=== PATIENT | female | born 1955 | race Caucasian/White ===

== ENCOUNTER → 2022-12-17 | Outpatient (CLI) | payer MEDICARE, OTHER ==
[~2022-12-17] MED LIST: BREO ELLIPTA1 POW IH; FLUTICASONE-VI1 EACH IH; HALCION0.25 MG PO; HYDROCHLOROTH12.5 M1 PO; LOVASTATIN20 M1 PO; METOPROLOL SUCC50 M1 PO; SINGULAIR 110 MG/TAB PO; VALIUM 2MG T2 MG/TAB PO; ZOFRAN ODT4 MG PO
[2022-12-17 10:45] LABS: BASO # 0.01 K/mm3 (0.02-0.10); EOS # 0.05 K/mm3 (0.04-0.40); EOS % 0.4 % (1.0-5.0); HEMATOCRIT 42.5 % (37.0-47.0); HEMOGLOBIN 14.2 g/dL (12.5-16.0); LYMPH# 0.72 K/mm3 (1.50-4.00); MEAN CELL VOLUME 91 fl (78-100); MEAN CORPUSCULAR HEMOGLOBIN 30 pg (27-31); MEAN CORPUSCULAR HGB CONC 33 g/dL (33-37); MEAN PLATELET VOLUME 8.5 fl (7.4-10.4); MONO # 0.55 K/mm3 (0.20-0.80); NEU # 11.13 K/mm3 (1.40-6.50); PLATELET COUNT 247 K/mm3 (130-400); RED BLOOD COUNT 4.69 M/mm3 (4.10-5.30); WHITE BLOOD COUNT 12.5 K/mm3 (4.8-10.8)
[2022-12-17 10:50] LABS: ALBUMIN 4.5 g/dL (3.4-4.8); POTASSIUM 3.7 mmol/L (3.5-5.1)
[2022-12-17 10:51] LABS: CALCIUM 10.6 mg/dL (8.3-10.5)
[2022-12-17 10:53] LABS: TOTAL PROTEIN 7.6 g/dL (6.2-8.1)
[2022-12-17 10:55] LABS: TOTAL BILIRUBIN 0.7 mg/dL (0.2-1.2)
[2022-12-17 11:00] LABS: MAGNESIUM 2.1 mg/dL (1.60-2.60)
[2022-12-17 11:36] LABS: URINE APPEARANCE HAZY; URINE BILIRUBIN NEGATIVE (NEGATIVE); URINE BLOOD 50 ery/uL (NEGATIVE); URINE COLOR YELLOW; URINE GLUCOSE NEGATIVE (NEGATIVE); URINE KETONE 1+ (NEGATIVE); URINE LEUKOCYTE ESTERASE TRACE (NEGATIVE); URINE NITRATE NEGATIVE (NEGATIVE); URINE PROTEIN(semi-quant) TRACE (NEGATIVE); URINE UROBILINOGEN NORMAL (NORMAL)
[2022-12-17 11:37] LABS: URINE MUCUS PRESENT (NOT PRESENT)
[2022-12-17 11:48] LABS: ERYTHROCYTE SEDIMENTATION RATE 29 mm/hr (0-30)
== END ==
LOC: LAB 10:20
PROVIDERS: Internal Medicine
DX: K90.9 Intestinal malabsorption, unspecified (principal); I10 Essential (primary) hypertension; E78.2 Mixed hyperlipidemia; Z12.39 Encounter for other screening for malignant neoplasm of breast; Z12.11 Encounter for screening for malignant neoplasm of colon; J43.9 Emphysema, unspecified; N20.0 Calculus of kidney; M85.80 Other specified disorders of bone density and structure, unspecified site

== ENCOUNTER 2022-12-25 08:38 | Emergency (ER) | payer MEDICARE, OTHER ==
[2022-12-25 08:47] VITALS: BP 107/85
[2022-12-25] MEDS ORDERED: POTASSIUM CHLO480 ML PO (08:49)
[2022-12-25] MEDS ORDERED: VANCOMYCIN HYD125 MG PO (08:49)
[2022-12-25 09:28] LABS: BASO # 0.02 K/mm3 (0.02-0.10); EOS % 1.1 % (1.0-5.0); HEMATOCRIT 38.5 % (37.0-47.0); HEMOGLOBIN 12.8 g/dL (12.5-16.0); LYMPH# 0.93 K/mm3 (1.50-4.00); MEAN CELL VOLUME 91 fl (78-100); MEAN CORPUSCULAR HEMOGLOBIN 30 pg (27-31); MEAN CORPUSCULAR HGB CONC 33 g/dL (33-37); MEAN PLATELET VOLUME 8.6 fl (7.4-10.4); MONO # 0.91 K/mm3 (0.20-0.80); PLATELET COUNT 317 K/mm3 (130-400); RED BLOOD COUNT 4.24 M/mm3 (4.10-5.30); RED CELL DISTRIBUTION WIDTH 12.5 % (11.5-14.5); WHITE BLOOD COUNT 8.8 K/mm3 (4.8-10.8)
[2022-12-25 09:33] LABS: ALBUMIN 3.8 g/dL (3.4-4.8); POTASSIUM 3.5 mmol/L (3.5-5.1)
[2022-12-25 09:36] LABS: TOTAL PROTEIN 6.8 g/dL (6.2-8.1)
[2022-12-25 09:38] LABS: TOTAL BILIRUBIN 0.6 mg/dL (0.2-1.2)
== END 2022-12-25 12:04 | disposition home or self-care (01) ==
LOC: ED 08:38
PROVIDERS: Family Medicine
DX: A04.72 Enterocolitis due to Clostridium difficile, not specified as recurrent (principal); E61.1 Iron deficiency; Z28.310 Unvaccinated for COVID-19
CPT/HCPCS: J2405; J3490; J7030

== ENCOUNTER 2023-01-11 15:19 | Emergency (ER) | payer MEDICARE, OTHER ==
[~2023-01-11] VITALS: Ht 157.5 cm; Wt 60.5 kg
[~2023-01-11 15:19] MED LIST changes: +POTASSIUM CHLO480 ML PO; +VANCOMYCIN HYD125 MG PO
[2023-01-11 16:16] LABS: BASO # 0.03 K/mm3 (0.02-0.10); EOS # 0.03 K/mm3 (0.04-0.40); EOS % 0.4 % (1.0-5.0); HEMATOCRIT 37.4 % (37.0-47.0); HEMOGLOBIN 12.4 g/dL (12.5-16.0); LYMPH# 0.89 K/mm3 (1.50-4.00); MEAN CELL VOLUME 91 fl (78-100); MEAN CORPUSCULAR HEMOGLOBIN 30 pg (27-31); MEAN CORPUSCULAR HGB CONC 33 g/dL (33-37); MONO # 0.74 K/mm3 (0.20-0.80); NEU # 6.63 K/mm3 (1.40-6.50); PLATELET COUNT 172 K/mm3 (130-400); RED BLOOD COUNT 4.12 M/mm3 (4.10-5.30); WHITE BLOOD COUNT 8.3 K/mm3 (4.8-10.8)
[2023-01-11 16:23] LABS: POTASSIUM 3.1 mmol/L (3.5-5.1)
[2023-01-11 16:24] LABS: CALCIUM 9.9 mg/dL (8.3-10.5)
[2023-01-11 17:27] LABS: URINE APPEARANCE HAZY; URINE BILIRUBIN NEGATIVE (NEGATIVE); URINE COLOR YELLOW; URINE GLUCOSE NEGATIVE (NEGATIVE); URINE KETONE NEGATIVE (NEGATIVE); URINE NITRATE NEGATIVE (NEGATIVE); URINE PROTEIN(semi-quant) TRACE (NEGATIVE); URINE UROBILINOGEN NORMAL (NORMAL)
[2023-01-11 17:28] LABS: URINE BLOOD 50 ery/uL (NEGATIVE); URINE LEUKOCYTE ESTERASE NEGATIVE (NEGATIVE); URINE WBC 0-1 /hpf (0-3)
[2023-01-11] MEDS ORDERED: VANCOCIN125 MG PO (17:44)
[2023-01-11] MEDS ORDERED: EFFER-K20 MEQ PO ×2 (17:44→17:47)
[2023-01-11 17:48] VITALS: BP 147/85
== END 2023-01-11 17:47 | disposition home or self-care (01) ==
LOC: ED 15:19
PROVIDERS: Family Medicine
DX: A04.72 Enterocolitis due to Clostridium difficile, not specified as recurrent (principal); E87.6 Hypokalemia; J40 Bronchitis, not specified as acute or chronic

== ENCOUNTER → 2024-05-05 | Outpatient (CLI) | payer MEDICARE, OTHER ==
[~2024-05-05] MED LIST changes: +Denosumab 60 MG/ML SYRINGE SQ ONE; +EFFER-K20 MEQ PO; +VANCOCIN125 MG PO
[2024-05-05 10:52] LABS: BASO # 0.02 K/mm3 (0.02-0.10); EOS # 0.17 K/mm3 (0.04-0.40); EOS % 2.6 % (1.0-5.0); HEMATOCRIT 43.9 % (37.0-47.0); HEMOGLOBIN 14.7 g/dL (12.5-16.0); MEAN CELL VOLUME 90 fl (78-100); MEAN CORPUSCULAR HEMOGLOBIN 30 pg (27-31); MEAN CORPUSCULAR HGB CONC 34 g/dL (33-37); MEAN PLATELET VOLUME 8.8 fl (7.4-10.4); MONO # 0.62 K/mm3 (0.20-0.80); NEU # 4.53 K/mm3 (1.40-6.50); PLATELET COUNT 239 K/mm3 (130-400); RED BLOOD COUNT 4.86 M/mm3 (4.10-5.30); RED CELL DISTRIBUTION WIDTH 12.3 % (11.5-14.5); WHITE BLOOD COUNT 6.5 K/mm3 (4.8-10.8)
[2024-05-05 11:00] LABS: ALBUMIN 4.7 g/dL (3.4-4.8)
[2024-05-05 11:01] LABS: CALCIUM 10.9 mg/dL (8.3-10.5)
[2024-05-05 11:02] LABS: TOTAL PROTEIN 7.7 g/dL (6.2-8.1)
[2024-05-05 11:04] LABS: TOTAL BILIRUBIN 0.7 mg/dL (0.2-1.2)
[2024-05-05 11:09] LABS: MAGNESIUM 2.45 mg/dL (1.60-2.60)
[2024-05-05 11:35] LABS: URINE APPEARANCE CLEAR (CLEAR); URINE COLOR YELLOW (YELLOW); URINE GLUCOSE NEGATIVE (NEGATIVE); URINE KETONE NEGATIVE (NEGATIVE); URINE PROTEIN(semi-quant) NEGATIVE (NEGATIVE)
[2024-05-05 11:36] LABS: URINE BILIRUBIN NEGATIVE (NEGATIVE); URINE BLOOD TRACE-INTACT (NEGATIVE); URINE LEUKOCYTE ESTERASE NEGATIVE (NEGATIVE); URINE NITRATE NEGATIVE (NEGATIVE)
--- NOTE | 2024-05-05 11:41 | NUR ---
PT. ARRIVED FOR [facility] INJECTION. STATES SHE HAD RECLAST LAST TIME AND HAD DIFFICULTY WITH TINGLING AROUND LIPS AND FLU-LIKE S/S THE DAY AFTER. GIVEN PATIENT INFORMATION PACKET FROM [facility]. PT. HAS LABS SCHEDULED AND WOULD LIKE TO GET THE LAB RESULTS PRIOR TO INJECTION. PLANNED TO RUN ERRANDS THEN RETURN TO HOSPITAL. PT. GETS LAB DRAWN AND LEAVES. CALLS BACK TO HOSPITAL LATER AND STATES SHE HAS READ THE INSERT BETTER AND WOULD LIKE TO WAIT FOR THE INJECTION UNTIL A LATER DATE. PT. STATES WILL CALL BACK TO RESCHEDULE IF SHE WOULD LIKE TO TAKE THE MEDICATION.
== END ==
LOC: AMSURD 09:55 → LAB 09:55
PROVIDERS: Internal Medicine
DX: M81.0 Age-related osteoporosis without current pathological fracture (principal); I10 Essential (primary) hypertension; E78.2 Mixed hyperlipidemia; K90.9 Intestinal malabsorption, unspecified

== ENCOUNTER → 2024-07-09 | Outpatient (CLI) | payer MEDICARE, OTHER ==
[~2024-07-09] MED LIST changes: -Denosumab 60 MG/ML SYRINGE SQ ONE
[2024-07-09 15:18] LABS: ALBUMIN 4.4 g/dL (3.4-4.8)
[2024-07-09 15:19] LABS: CALCIUM 10.4 mg/dL (8.3-10.5)
[2024-07-09 15:23] LABS: TOTAL BILIRUBIN 0.7 mg/dL (0.2-1.2)
== END ==
LOC: LAB 14:44
PROVIDERS: Internal Medicine
DX: E78.2 Mixed hyperlipidemia (principal)

== ENCOUNTER → 2024-08-19 | Outpatient (CLI) | payer MEDICARE, OTHER ==
[2024-08-19 09:52] LABS: BASO # 0.01 K/mm3 (0.02-0.10); EOS # 0.22 K/mm3 (0.04-0.40); EOS % 3.9 % (1.0-5.0); HEMATOCRIT 43.5 % (37.0-47.0); HEMOGLOBIN 14.3 g/dL (12.5-16.0); LYMPH# 1.06 K/mm3 (1.50-4.00); MEAN CELL VOLUME 91 fl (78-100); MEAN CORPUSCULAR HEMOGLOBIN 30 pg (27-31); MEAN CORPUSCULAR HGB CONC 33 g/dL (33-37); MEAN PLATELET VOLUME 8.8 fl (7.4-10.4); MONO # 0.52 K/mm3 (0.20-0.80); NEU # 3.83 K/mm3 (1.40-6.50); PLATELET COUNT 217 K/mm3 (130-400); RED BLOOD COUNT 4.78 M/mm3 (4.10-5.30); RED CELL DISTRIBUTION WIDTH 11.9 % (11.5-14.5); WHITE BLOOD COUNT 5.7 K/mm3 (4.8-10.8)
[2024-08-19 10:04] LABS: ALBUMIN 4.4 g/dL (3.4-4.8)
[2024-08-19 10:05] LABS: CALCIUM 10.4 mg/dL (8.3-10.5)
[2024-08-19 10:06] LABS: TOTAL PROTEIN 7.2 g/dL (6.2-8.1)
[2024-08-19 10:08] LABS: TOTAL BILIRUBIN 0.6 mg/dL (0.2-1.2)
[2024-08-19 10:13] LABS: MAGNESIUM 2.2 mg/dL (1.60-2.60)
== END ==
LOC: LAB 09:29
PROVIDERS: Internal Medicine
DX: I10 Essential (primary) hypertension (principal); K90.9 Intestinal malabsorption, unspecified

== ENCOUNTER 2025-01-28 12:11 | Emergency (ER) | payer MEDICARE, OTHER ==
[~2025-01-28] VITALS: Ht 157.5 cm; Wt 64.1 kg
[2025-01-28 12:41] LABS: HEMATOCRIT 41.3 % (37.0-47.0); HEMOGLOBIN 13.6 g/dL (12.5-16.0); MEAN CELL VOLUME 92 fl (78-100); MEAN CORPUSCULAR HEMOGLOBIN 30 pg (27-31); MEAN CORPUSCULAR HGB CONC 33 g/dL (33-37); MEAN PLATELET VOLUME 9.4 fl (7.4-10.4); PLATELET COUNT 192 K/mm3 (130-400); RED BLOOD COUNT 4.49 M/mm3 (4.10-5.30); RED CELL DISTRIBUTION WIDTH 12.6 % (11.5-14.5); WHITE BLOOD COUNT 9.1 K/mm3 (4.8-10.8)
[2025-01-28 12:49] LABS: ALBUMIN 4.4 g/dL (3.4-4.8)
[2025-01-28 12:50] LABS: CALCIUM 10.8 mg/dL (8.3-10.5)
[2025-01-28 12:52] LABS: TOTAL PROTEIN 7.6 g/dL (6.2-8.1)
[2025-01-28 12:53] LABS: TOTAL BILIRUBIN 0.5 mg/dL (0.2-1.2)
[2025-01-28] MEDS ORDERED: Albuterol/Ipratropium 3 MG-0.5 MG/3 ML Neb Soln IH ONE (13:00)
[2025-01-28 13:02] LABS: D-DIMER 0.25 mg/L FEU (0.15-0.50)
[2025-01-28 13:07] LABS: URINE WBC 0 /hpf (0-3)
[2025-01-28 13:13] LABS: LYMPHOCYTE 10 % (20-51); MONOCYTE 1 % (3-10); NEUTROPHILS 89 % (42-75)
[2025-01-28 13:28] LABS: URINE APPEARANCE CLEAR (CLEAR); URINE COLOR YELLOW (YELLOW)
[2025-01-28 13:29] LABS: PH-URINE 5.5 (5.0 - 8.0); URINE BILIRUBIN NEGATIVE (NEGATIVE); URINE BLOOD TRACE-INTACT (NEGATIVE); URINE GLUCOSE NEGATIVE (NEGATIVE); URINE KETONE NEGATIVE (NEGATIVE); URINE LEUKOCYTE ESTERASE NEGATIVE (NEGATIVE); URINE NITRATE NEGATIVE (NEGATIVE); URINE PROTEIN(semi-quant) NEGATIVE (NEGATIVE)
[2025-01-28] MEDS ORDERED: VITAMIN D310 MC1 (15:08)
[2025-01-28] MEDS ORDERED: CETIRIZINE HCL10 MG PO (15:19)
[2025-01-28] MEDS ORDERED: NASONEX 24HR AL17 ML IH (15:21)
[2025-01-28] MEDS ORDERED: PROLIA60 MG/ML SC (15:22)
[2025-01-28] MEDS ORDERED: HALCION0.25 MG PO (15:24)
[2025-01-28 15:30] VITALS: BP 159/91
[2025-02-09] MEDS ORDERED: PREDNISONE10 MG PO (09:03)
== END 2025-01-28 15:30 ==
LOC: ED 12:11
PROVIDERS: Family Medicine
DX: J44.1 Chronic obstructive pulmonary disease with (acute) exacerbation (principal); R09.02 Hypoxemia; Z87.891 Personal history of nicotine dependence

== ENCOUNTER 2025-01-28 14:24 | Inpatient (IN) | payer MEDICARE, OTHER ==
[~2025-01-28] VITALS: Ht 157.5 cm; Wt 67.1 kg
[2025-01-28] MEDS ORDERED: VITAMIN D310 MC1 (15:08)
[2025-01-28] MEDS ORDERED: Polyethylene Glycol 3350 Powder 17 GM PACKET PO PRN (15:15)
[2025-01-28] MEDS ORDERED: cefTRIAXone 1 G in Water For Injection,Sterile 10 ML IV SCH (15:15)
[2025-01-28] MEDS ORDERED: Ibuprofen 200 MG TAB PO PRN ×2 (15:15→17:45)
[2025-01-28] MEDS ORDERED: Acetaminophen 500 MG TAB PO PRN (15:15)
[2025-01-28] MEDS ORDERED: CETIRIZINE HCL10 MG PO (15:19)
[2025-01-28] MEDS ORDERED: NASONEX 24HR AL17 ML IH (15:21)
[2025-01-28] MEDS ORDERED: PROLIA60 MG/ML SC (15:22)
[2025-01-28] MEDS ORDERED: HALCION0.25 MG PO (15:24)
[2025-01-28] MEDS ORDERED: Albuterol 0.083% Nebule (2.5 MG/3 ML) IH PRN (15:30)
[2025-01-28] MEDS ORDERED: ALPRAZolam 0.25 MG TAB PO PRN (15:45)
[2025-01-28] MEDS ORDERED: diazePAM 2 MG TAB PO PRN (15:45)
[2025-01-28 16:10] VITALS: BP 159/91
[2025-01-28] MEDS ORDERED: Famotidine 20 MG TAB PO PRN (16:30)
[2025-01-28 19:00] VITALS: BP 166/80
[2025-01-28] MEDS ORDERED: Budesonide Neb Soln 0.5 MG/2 ML AMP IH SCH (21:00)
[2025-01-28] MEDS ORDERED: methylPREDNISolone Sod Succ 125 MG/2 ML VIAL IV SCH (21:00)
[2025-01-28] MEDS ORDERED: Montelukast 10 MG TAB PO SCH (21:00)
[2025-01-28] MEDS ORDERED: Albuterol/Ipratropium 3 MG-0.5 MG/3 ML Neb Soln IH SCH (21:00)
[2025-01-28 23:18] VITALS: BP 143/73
[2025-01-29 03:00] VITALS: BP 138/81
[2025-01-29 07:14] LABS: HEMATOCRIT 36.9 % (37.0-47.0); HEMOGLOBIN 12.3 g/dL (12.5-16.0); MEAN CELL VOLUME 92 fl (78-100); MEAN CORPUSCULAR HEMOGLOBIN 31 pg (27-31); MEAN CORPUSCULAR HGB CONC 33 g/dL (33-37); MEAN PLATELET VOLUME 9.4 fl (7.4-10.4); PLATELET COUNT 194 K/mm3 (130-400); RED BLOOD COUNT 4.01 M/mm3 (4.10-5.30); RED CELL DISTRIBUTION WIDTH 12.5 % (11.5-14.5)
[2025-01-29 07:24] LABS: ALBUMIN 3.9 g/dL (3.4-4.8)
[2025-01-29 07:25] LABS: CALCIUM 10.3 mg/dL (8.3-10.5)
[2025-01-29 07:27] LABS: TOTAL PROTEIN 6.8 g/dL (6.2-8.1)
[2025-01-29 07:28] LABS: TOTAL BILIRUBIN 0.3 mg/dL (0.2-1.2)
[2025-01-29 08:56] LABS: BAND 4 % (0-10); LYMPHOCYTE 4 % (20-51); MONOCYTE 1 % (3-10); NEUTROPHILS 91 % (42-75)
[2025-01-29] MEDS ORDERED: Montelukast 10 MG TAB PO SCH (09:00)
[2025-01-29] MEDS ORDERED: hydroCHLOROthiazide 25 MG TAB PO SCH (09:00)
[2025-01-29] MEDS ORDERED: Cetirizine 10 MG TAB PO SCH (09:00)
[2025-01-29 11:35] VITALS: BP 130/72
[2025-01-29] MEDS ORDERED: predniSONE 10 MG TAB PO SCH (18:14)
[2025-01-29 19:32] VITALS: BP 181/94
[2025-01-29] MEDS ORDERED: hydrALAZINE 25 MG TAB PO ONE (19:45)
[2025-01-29] MEDS ORDERED: Temazepam 15 MG CAP PO PRN (20:00)
[2025-01-29] MEDS ORDERED: Budesonide Neb Soln 0.5 MG/2 ML AMP IH SCH (21:00)
[2025-01-29] MEDS ORDERED: Cefdinir 300 MG CAP PO SCH (21:00)
[2025-01-29 23:01] VITALS: BP 147/65
[2025-01-30 02:53] VITALS: BP 146/81
[2025-01-30] MEDS ORDERED: predniSONE 10 MG TAB PO SCH (09:00)
[2025-01-30 11:01] VITALS: BP 160/75
[2025-01-30 15:00] VITALS: BP 146/75
[2025-01-30 19:47] VITALS: BP 134/83
[2025-01-30 23:33] VITALS: BP 154/81
[2025-01-31 03:23] VITALS: BP 158/94
[2025-01-31 11:33] VITALS: BP 138/84
[2025-01-31 15:19] VITALS: BP 166/71
[2025-01-31 19:00] VITALS: BP 145/62
[2025-01-31 23:53] VITALS: BP 135/81
[2025-02-01 03:07] VITALS: BP 149/88
[2025-02-01 08:44] LABS: EOS # 0.06 K/mm3 (0.04-0.40); EOS % 0.5 % (1.0-5.0); HEMATOCRIT 46.1 % (37.0-47.0); HEMOGLOBIN 15.1 g/dL (12.5-16.0); LYMPH# 2.41 K/mm3 (1.50-4.00); MEAN CELL VOLUME 91 fl (78-100); MEAN CORPUSCULAR HEMOGLOBIN 30 pg (27-31); MEAN CORPUSCULAR HGB CONC 33 g/dL (33-37); MEAN PLATELET VOLUME 8.8 fl (7.4-10.4); MONO # 1.07 K/mm3 (0.20-0.80); NEU # 8.26 K/mm3 (1.40-6.50); PLATELET COUNT 246 K/mm3 (130-400); RED BLOOD COUNT 5.06 M/mm3 (4.10-5.30); RED CELL DISTRIBUTION WIDTH 12.4 % (11.5-14.5); WHITE BLOOD COUNT 12.4 K/mm3 (4.8-10.8)
[2025-02-01 08:53] LABS: ALBUMIN 4.1 g/dL (3.4-4.8)
[2025-02-01 08:55] LABS: CALCIUM 10.4 mg/dL (8.3-10.5)
[2025-02-01 08:56] LABS: TOTAL PROTEIN 7.5 g/dL (6.2-8.1)
[2025-02-01 08:58] LABS: TOTAL BILIRUBIN 0.4 mg/dL (0.2-1.2)
[2025-02-01 11:21] VITALS: BP 144/76
[2025-02-09] MEDS ORDERED: PREDNISONE10 MG PO (09:03)
== END 2025-02-01 15:00 | disposition still patient (30) | DRG 202 ==
LOC: MED/SURG 14:24
PROVIDERS: ADMIT Family Medicine
DX: J20.9 Acute bronchitis, unspecified (principal); K90.9 Intestinal malabsorption, unspecified; J43.1 Panlobular emphysema; R09.02 Hypoxemia; I10 Essential (primary) hypertension; F41.9 Anxiety disorder, unspecified; E78.5 Hyperlipidemia, unspecified; Z87.891 Personal history of nicotine dependence; Z79.899 Other long term (current) drug therapy
CPT/HCPCS: J0696; J1650; J2919; J7512

== ENCOUNTER → 2025-02-17 | Outpatient (CLI) | payer MEDICARE, OTHER ==
[~2025-02-17] MED LIST changes: +CETIRIZINE HCL10 MG PO; +NASONEX 24HR AL17 ML IH; +PREDNISONE10 MG PO; +PROLIA60 MG/ML SC; +VITAMIN D310 MC1
[2025-02-17 10:31] LABS: BASO # 0.03 K/mm3 (0.02-0.10); EOS # 0.09 K/mm3 (0.04-0.40); EOS % 0.7 % (1.0-5.0); HEMATOCRIT 44.7 % (37.0-47.0); HEMOGLOBIN 14.6 g/dL (12.5-16.0); LYMPH# 0.92 K/mm3 (1.50-4.00); MEAN CELL VOLUME 93 fl (78-100); MEAN CORPUSCULAR HEMOGLOBIN 30 pg (27-31); MEAN CORPUSCULAR HGB CONC 33 g/dL (33-37); MEAN PLATELET VOLUME 8.4 fl (7.4-10.4); MONO # 0.64 K/mm3 (0.20-0.80); NEU # 11.12 K/mm3 (1.40-6.50); PLATELET COUNT 249 K/mm3 (130-400); RED BLOOD COUNT 4.82 M/mm3 (4.10-5.30); RED CELL DISTRIBUTION WIDTH 12.9 % (11.5-14.5); WHITE BLOOD COUNT 12.9 K/mm3 (4.8-10.8)
[2025-02-17 10:36] LABS: ALBUMIN 4.3 g/dL (3.4-4.8)
[2025-02-17 10:37] LABS: CALCIUM 11.4 mg/dL (8.3-10.5)
[2025-02-17 10:38] LABS: TOTAL PROTEIN 7.6 g/dL (6.2-8.1)
[2025-02-17 10:40] LABS: TOTAL BILIRUBIN 0.5 mg/dL (0.2-1.2)
[2025-02-17 10:45] LABS: MAGNESIUM 2.08 mg/dL (1.60-2.60)
[2025-02-17 22:44] LABS: PTH,INTACT 107.4 pg/mL (6.6-88.9)
== END ==
LOC: LAB 10:14
PROVIDERS: Internal Medicine
DX: I10 Essential (primary) hypertension (principal); M81.0 Age-related osteoporosis without current pathological fracture; E78.2 Mixed hyperlipidemia; E83.52 Hypercalcemia; K90.9 Intestinal malabsorption, unspecified; R73.9 Hyperglycemia, unspecified